=== PATIENT | male | born 1995 | race Caucasian/White ===

== ENCOUNTER 2016-10-30 22:10 | Emergency (ER) | payer OTHER ==
[~2016-10-30] VITALS: Ht 177.8 cm; Wt 92.7 kg
[2016-10-30 22:15] VITALS: TEMP 37.2; Ht 177.8 cm; Wt 92.7 kg
[2016-10-30] MEDS ORDERED: XYLOCAINE 1%/SOD BICARB 20 ML VIAL INFIL ONE (22:45)
[2016-10-30] MEDS ORDERED: DIPHTHERIA/TETANUS/PERTUSSIS 0.5 ML SYR/VIAL IM. ONE (22:45)
[2016-10-30] MEDS ORDERED: LORA-554 PO (22:57)
--- NOTE | 2016-10-30 22:58 | EMERGENCY ROOM VISIT NOTE ---
ED Visit Note First contact with patient: 22:17 CHIEF COMPLAINT: Left leg laceration HISTORY OF PRESENT ILLNESS: This 21-year-old male patient presents to the emergency department ambulatory after cutting the left rinaldi while using a hatchet earlier today. The bleeding has stopped. Denies weakness or numbness of the foot or toes. The patient denies any pain. The patient denies any other injuries. The patient's Tetanus shot is possibly not up to date. REVIEW OF SYSTEMS: A 6 system review of systems was completed with positives and pertinent negatives listed in the HPI. ALLERGIES: No known drug allergies MEDICATIONS: None PMH: None SOCIAL HISTORY: The patient does not smoke. He is a recent graduate PHYSICAL EXAM: Vital Signs: Reviewed Nurse's notes, vital signs stable. GENERAL : This is a 21-year-old male, in no acute distress, well-developed, well- nourished. SKIN: There is a 3 cm long laceration on the anterior aspect of the left lower extremity. The edges gape apart with traction. There is no foreign material in the wound and it looks clean. There is minimal bleeding. No deep structures such as tendons, bones, or nerves are seen in the base of the wound. Normal strength and movement of the foot and toes. Capillary refill less than 2 seconds. Normal sensation to light and sharp touch. EMERGENCY DEPARTMENT COURSE: I examined the patient. Using sterile technique the wound was cleaned with Betadine. The area was sterilely draped. 5 ml of 1% buffered lidocaine was used to anesthetize the laceration on the leg. Once the patient was numb, the wound was copiously irrigated under pressure with sterile saline. The wound was explored and was as described above. The laceration was repaired using simple interrupted 4-0 nylon sutures with the wound edges being well approximated. The patient tolerated the procedure well. The bleeding stopped. The area was cleaned with sterile saline and dressed with bacitracin ointment and bandage. The patient was given Td immunization. At the time of discharge, the patient stated that he felt as though his heart was pounding. He denies any chest pain or shortness of breath. He states he is quite worried about it. The patient has been drinking alcohol. He states he stopped drinking caffeine a few days ago when he noticed the heart pounding. The symptoms have been present and constant for 3 days. The patient states that his grandfather of sudden cardiac in his early 50s and his father of sudden cardiac at age 46. The patient states that he has had echocardiogram in the past. An EKG revealed a normal sinus rhythm without ectopy or acute ischemia. I-STAT does not reveal any significant abnormality. Ciadl-gt-olhn troponin was negative. I did offer to perform a more extensive evaluation including x-rays, IV and additional laboratory studies but the patient declines. His symptoms may be related to some degree of dehydration as he works outside all day, has been drinking alcohol recently and does drink caffeine. He was advised to increase his water intake. He should return to the ER with any worsening symptoms and should follow-up with his family doctor. The case was discussed with Dr. Harrison who agrees with the assessment and treatment plan The patient was discharged home in good condition. An x-ray was obtained and reviewed by myself and does not reveal any obvious bony involvement. Current/Historical Medications Scheduled PRN Loratadine (Allergy Relief), 10 MG PO DAILY PRN for Allergy Symptoms Allergies Coded Allergies: No Known Allergies (Unverified , 10/30/16) Vital Signs Date Time Temp Pulse Resp B/P Pulse Ox O2 Delivery O2 Flow Rate FiO2 10/31/16 00:59 89 16 123/80 98 10/30/16 22:15 37.2 111 18 126/63 95 Room Air Laboratory Results Test 10/31/16 00:06 Bedside Troponin I 0.000 ng/ml (0-0.045) Medications Administered Medications (Trade) Dose Ordered Sig/Blaine Route Start Time Stop Time Status Last Admin Dose Admin Diphtheria/ Pertussis/Tetanus Vacc (Adacel Inj) 0.5 ml ONCE ONCE IM. 10/30/16 22:45 10/30/16 22:46 DC 10/30/16 23:02 0.5 ML Departure Information Impression Primary Impression: Leg laceration Additional Impression: Palpitations Dispostion Home / Self-Care Condition GOOD Referrals No Doctor, Assigned (PCP) Patient Instructions ED Laceration All, ED Palpitations, My [facility] Additional Instructions Keep wound clean and dry. Do not allow any crusting or dried blood to accumulate on sutures. If this occurs, use a 1:1 solution of hydrogen peroxide/ water on a Q-tip to clean the wound. Use an antibiotic ointment for 3-4 days, then let wound dry. Suture removal in 10-12 days. Return sooner for any signs of infection (increasing redness, swelling, drainage). Ice and elevate for swelling and pain. Ibuprofen 600 mg every 6 hrs for pain. Keep covered when in sun until sutures removed then SPF 50 or higher for one year. Vitamin E oil if desired two weeks after suture removal for reduction of scar. Follow up with your family doctor Increase water intake over the next 24-48 hours Problem Qualifiers Primary Impression: Leg laceration Encounter type: initial encounter Laterality: left Qualified Codes: S81.812A - Laceration without foreign body, left lower leg, initial encounter
[2016-10-31 00:59] VITALS: BP 123/80; PULSE 89; O2SAT 98
--- NOTE | 2016-10-31 06:28 | DIAGNOSTIC IMAGING REPORT ---
LEFT TIBIA/FIBULA 2 VIEWS ROUTINE CLINICAL HISTORY: Left lower leg pain status post trauma COMPARISON: None. DISCUSSION: No acute fractures or dislocations are visualized. IMPRESSION: No fractures identified. Electronically signed by: Matias Emmanuel M.D. 10/31/2016 6:26 AM Dictated Date/Time: 10/31/2016 6:25 AM
[2016-10-31 07:03] LABS: ISTAT IONIZED CALCIUM 1.18 mmol/l (1.12-1.32)
== END 2016-10-31 01:00 | disposition home or self-care (01) ==
LOC: C.EDB 22:12
DX: S81.812A Laceration without foreign body, left lower leg, initial encounter (principal); W45.8XXA Other foreign body or object entering through skin, initial encounter; R00.2 Palpitations; Z23 Encounter for immunization